=== PATIENT | female | born 1965 | race Caucasian/White ===

== ENCOUNTER → 2016-11-27 | Outpatient (CLI) | payer MEDICARE | LOC: RAD 10:49 | PROVIDERS: ATTEND Nurse Practitioner Psychiatric/Mental Health | DX: R19.00 Intra-abdominal and pelvic swelling, mass and lump, unspecified site (principal); K76.0 Fatty (change of) liver, not elsewhere classified; R16.0 Hepatomegaly, not elsewhere classified; N28.1 Cyst of kidney, acquired | CPT/HCPCS: 76700; 93976 ==

== ENCOUNTER → 2017-06-21 | Outpatient (CLI) | payer MEDICARE ==
--- NOTE | 2017-06-22 17:41 | WOMENS IMAGING REPORT ---
EXAM DESCRIPTION: 3D SCREENING MAMMO BILAT COMPLETED DATE/TIME: 06/21/2017 2:02 pm REASON FOR STUDY: ROUTINE SCREENING;Z12.31 Z12.31 ENCNTR SCREEN MAMMOGRAM FOR MALIGNANT NEOPLASM OF LYUBOV COMPARISON: Multiple since 2008 TECHNIQUE: Standard craniocaudal and mediolateral oblique views of each breast recorded using digita l acquisition and breast tomosynthesis. LIMITATIONS: None. FINDINGS: No masses, calcifications or architectural distortion. No areas of suspicion. Read with the assistance of CAD. .[facility] - R2 [employer] Version 1.3 .[facility] Imaging - R2 Cenova Version 1.3 .[facility] - R2 Cenova Version 2.4 .[facility] [place] R2 Cenova Version 2.4 .[facility] - R2 [employer] Version 9.2 IMPRESSION: NORMAL MAMMOGRAM. BIRADS 1. BREAST DENSITY: a. The breasts are almost entirely fatty. BIRAD: 1 NEGATIVE RECOMMENDATION: ROUTINE SCREENING Please continue yearly bilateral screening tomosynthesis in June 2018 COMMENT: The patient has been notified of the results by letter per SA requirements. Additional no tification policies are in place for contacting patient with suspicious or incomplete findings. Quality ID #[id number]: The [employer] recommends an annual screening mammogram for women aged 40 years or over. This facility utilizes a reminder system to ensure that all patients receive reminder letters, and/or direct phone calls for appointments. This includes reminders for routine scr eening mammograms, diagnostic mammograms, or other Breast Imaging Interventions when appropriate. Th is patient will be placed in the appropriate reminder system. The [employer] (ACR) has developed recommendations for screening MRI of the breast s in certain patient populations, to be used in conjunction with mammography. Breast MRI surveillanc e may be appropriate for women with more than 20% lifetime risk of developing breast cancer as deter mined by genetic testing, significant family history of the disease, or history of mantle radiation f or Hodgkins Disease. ACR Practice Guidelines 2008. DBT Technology DBT is a type of tomographic mammography. With conventional mammography, overlapping breast tissue ma y make lesions difficult to detect, even with good compression. DBT uses an x-ray tube that rotates a round the breast, taking images at different angles. These images are then combined to create thin sl ices of the breast that the radiologist can view as a 3D reconstruction. The [employer] unit can perform full-field digital mammograms (2D imaging); or DBT (3D imaging); or both, in a combination mode that quickly performs both the mammogram and the tomosynthesis scan while the breast is still compressed. PQRS 6045F: Fluoroscopic imaging is not utilized for breast tomosynthesis. TECHNICAL DOCUMENTATION: FINDING NUMBER: (1) ASSESSMENT: (1) JOB ID: [id number] [employer]- All Rights Reserved
== END ==
LOC: WI 13:49
PROVIDERS: ATTEND Internal Medicine Geriatric Medicine
DX: Z12.31 Encounter for screening mammogram for malignant neoplasm of breast (principal)
CPT/HCPCS: 77063; G0202; 77067

== ENCOUNTER 2018-04-09 22:01 | Emergency (ER) | payer MEDICARE ==
--- NOTE | 2018-04-09 23:07 | RADIOLOGY REPORT (SQ) ---
EXAM DESCRIPTION: 3 views of the left wrist CLINICAL HISTORY: 53 years, Female, fall injury COMPARISON: None. FINDINGS: There is no acute fracture or dislocation. The bony alignment is normal. There is no focal soft tissue swelling. The distal radius/ ulna, carpal, metacarpal, and phalangeal bones are normal in appearance.The visualized portions of the intercarpal, carpometacarpal, metacarpophalangeal, and interphalangeal joints are normal in appearance. IMPRESSION: No acute fracture or dislocation.
--- NOTE | 2018-04-09 23:12 | ER Document Report ---
ED General - General Chief Complaint: Fall Injury Stated Complaint: FALL/ARM INJURY Time Seen by Provider: 04/09/18 22:58 Notes: Patient is a 53-year-old female who presents with complaints of pain in the left wrist, right knee, and right ribs. She tripped over her dog leash when her dog took off fell onto her porch. She has been able walk without difficulty. Knee x-rays ordered in triage. Left wrist is swollen she does have pain over scaphoid. She also has pain in her right ribs that hurts to laugh or take a deep breath. She took oxycodone 10 mg at home before coming in. She denies hitting her head. No loss of consciousness. No other complaints at this time. TRAVEL OUTSIDE OF THE [place] IN LAST 30 DAYS: No - Related Data Allergies/Adverse Reactions: erythromycin base [Erythromycin Base] Allergy (Severe, Verified 10/23/13 11:04) Hives ketorolac tromethamine [From Toradol] Allergy (Severe, Verified 10/23/13 11:04) GI upset Penicillins Allergy (Severe, Verified 10/23/13 11:04) Hives valsartan [From Diovan] Allergy (Severe, Verified 10/23/13 11:04) Severe headache vancomycin [Vancomycin] Allergy (Severe, Verified 10/23/13 11:04) Hives Sulfa (Sulfonamide Antibiotics) Allergy (Verified 04/29/14 10:06) morphine [Morphine] Adverse Reaction (Verified 04/29/14 10:06) Past Medical History - Social History Smoking Status: Unknown if Ever Smoked Frequency of alcohol use: None Drug Abuse: None Family History: CAD - Past Medical History Cardiac Medical History: Reports: Hx Hypertension Denies: Hx Coronary Artery Disease, Hx Heart Attack Pulmonary Medical History: Reports: Hx Pneumonia - yrs ago Denies: Hx Asthma, Hx Bronchitis, Hx COPD Neurological Medical History: Denies: Hx Cerebrovascular Accident, Hx Seizures Endocrine Medical History: Reports: Hx Diabetes Mellitus Type 2 Musculoskeletal Medical History: Reports Hx Arthritis Past Surgical History: Reports: Hx Appendectomy, Hx Cholecystectomy, Hx Gynecologic Surgery - ovary tube, Hx Hysterectomy, Hx Orthopedic Surgery - back x5, elbow, - Immunizations Hx Diphtheria, Pertussis, Tetanus Vaccination: Yes Review of Systems - Review of Systems Notes: My Normal Review Basic REVIEW OF SYSTEMS: CONSTITUTIONAL : Denies fever, chills, or sweats. Denies recent illness. EENT: Denies eye, ear, throat, or mouth pain or symptoms. Denies nasal or sinus congestion. CARDIOVASCULAR: Denies chest pain. RESPIRATORY: Denies cough, cold, or chest congestion. Denies shortness of breath, difficulty breathing, or wheezing. GASTROINTESTINAL: Denies abdominal pain. Denies nausea, vomiting, or diarrhea. Denies constipation. Last BM: MUSCULOSKELETAL: Left wrist pain, right knee pain, right rib pain. SKIN: Denies rash or skin lesions. NEUROLOGICAL: Denies altered mental status or loss of consciousness. Denies headache. Denies weakness or paralysis or loss of use of either side. Denies problems with gait or speech. Denies sensory or motor loss. ALL OTHER SYSTEMS REVIEWED AND NEGATIVE. Physical Exam - Vital signs Vitals: Temp Pulse Resp BP Pulse Ox 97.3 F 83 16 140/91 H 99 04/09/18 22:35 04/09/18 22:35 04/09/18 22:35 04/09/18 22:35 04/09/18 22:35 - Notes Notes: General Appearance: Well nourished, alert, cooperative, no acute distress, mild obvious discomfort. Vitals: reviewed, See vital signs table. Head: no swelling or tenderness to the head Eyes: PERRL, EOMI, Conjuctiva clear Mouth: No decreasd moisture Neck: Supple, no neck tenderness, Chest wall: Pain palpation over the right ribs approximately over rib area 8 9 and 10. No crepitance palpation. Lungs: No wheezing, No rales, No rhonci, No accessory muscle use, good air exchange bilaterally. Heart: Normal rate, Regular rythm, No murmur, no rub Abdomen: Normal BS, soft, No rigidity, No abdominal tenderness, No guarding, no rebound, no abdominal masses, no organomegaly Extremities: strength 5/5 in all extremities, good pulses in all extremities, pain to palpation over left wrist. He is swelling over the scaphoid area. He has tenderness with any palpation of the wrist whether it is on the radial or ulnar aspect. No pain to palpation of the hand itself. Remainder forearm is nontender. Patient has skin abrasion over the right patella. The only area of tenderness is over the skin abrasion itself. The remainder of the knee is nontender and not swollen. Remainder of the extremity exams are normal without tenderness or swelling patient is full range of motion of all joints except for the pain with motion over the left wrist., no edema. Skin: warm, dry, appropriate color, no rash Neuro: speech clear, oriented x 3, normal affect, responds appropriately to questions. Course - Re-evaluation Re-evalutation: 04/10/18 00:08 Patient's x-rays do not show any fractures however she does have a lot of pain over the scaphoid area as well as swelling. Concern for possible occult scaphoid fracture. I therefore had the patient placed in a thumb spica splint. Patient to follow-up with her doctor in 5 days to week to have the wrist reevaluated. Patient encouraged to return to ER if she has difficulty breathing , fevers, worsening pain, or if she feels unwell. Patient given incentive spirometer due to her rib contusion. Patient has no pain to palpation of the abdomen and her rib pain is more over the chest thorax area. Dictation of this chart was performed using voice recognition software; therefore, there may be some unintended grammatical errors. - Vital Signs Vital signs: Temp Pulse Resp BP Pulse Ox 97.3 F 83 16 140/91 H 99 04/09/18 22:35 04/09/18 22:35 04/09/18 22:35 04/09/18 22:35 04/09/18 22:35 Procedures - Immobilization left wrist Pre-Proc Neuro Vasc Exam: Normal Immobilizer type: Thumb spica Performed by: PCT Post-Proc Neuro Vasc Exam: Normal Discharge - Discharge Clinical Impression: Wrist injury Qualifiers: Encounter type: initial encounter Laterality: left Qualified Code(s): S69.92XA - Unspecified injury of left wrist, hand and finger(s), initial encounter Knee abrasion Qualifiers: Encounter type: initial encounter Laterality: right Qualified Code(s): S80.211A - Abrasion, right knee, initial encounter Contusion of rib on right side Qualifiers: Encounter type: initial encounter Qualified Code(s): S20.211A - Contusion of right front wall of thorax, initial encounter Condition: Good Disposition: HOME, SELF-CARE Additional Instructions: Your x-rays do not show any fractures. Your left wrist does have significant swelling and has swelling over a bone called the scaphoid. Whenever there is tenderness of the scaphoid we are concerned that there may still be an underlying fracture not seen on x-ray. We therefore placed a splint. Please follow-up with your doctor in about 5 days. If you are still having pain over that bone then you will need a repeat x-ray to further evaluate the wrist. Please use an incentive spirometer to take a deep breath in once every 30 minutes. Please return to the ER immediately if you develop difficulty breathing, fevers, worsening pain, or feel unwell. Please clean your knee abrasion with soap and water and apply a clean nonstick bandage every day. Referrals: MERT PERSAUD MD [Primary Care Provider] - Follow up in 3-5 days
--- NOTE | 2018-04-09 23:15 | RADIOLOGY REPORT (SQ) ---
EXAM DESCRIPTION: XR KNEE 4 OR MORE VIEWS COMPLETED DATE/TME: 04/09/2018 22:10 CLINICAL HISTORY: 53 years Female, fall injury COMPARISON: None. Findings: Small knee effusion, likely developmental mild femoral condylar concavity, small osteophyte of the medial femoral condyle.. Bones, joints, and soft tissues of the XR R KNEE 4 VIEWS appear otherwise intact. IMPRESSION: Small right knee effusion.
--- NOTE | 2018-04-09 23:32 | RADIOLOGY REPORT (SQ) ---
EXAM DESCRIPTION: XR RIBS R UNILATERAL WITH CHEST COMPLETED DATE/TME: 04/09/2018 23:07 CLINICAL HISTORY: 53 years Female, trauma COMPARISON: None. NUMBER OF VIEWS/TECHNIQUE: 4 FINDINGS: No displaced rib fracture. No pneumothorax. No acute cardiopulmonary findings. Thoracolumbar hardware fusion. Right upper abdominal clips. IMPRESSION: No acute findings.
[2018-04-10 00:28] VITALS: BP 135/81
== END 2018-04-10 00:28 | disposition home or self-care (01) ==
LOC: ER 22:01
DX: S20.211A Contusion of right front wall of thorax, initial encounter (principal); S80.211A Abrasion, right knee, initial encounter; S69.92XA Unspecified injury of left wrist, hand and finger(s), initial encounter; W01.0XXA Fall on same level from slipping, tripping and stumbling without subsequent striking against object, initial encounter; Z88.1 Allergy status to other antibiotic agents; Z88.8 Allergy status to other drugs, medicaments and biological substances; Z88.0 Allergy status to penicillin; Z88.2 Allergy status to sulfonamides; I10 Essential (primary) hypertension; E11.9 Type 2 diabetes mellitus without complications
CPT/HCPCS: 99283

== ENCOUNTER → 2019-02-03 | Outpatient (CLI) | payer MEDICARE ==
--- NOTE | 2019-02-03 11:33 | WOMENS IMAGING REPORT ---
EXAM DESCRIPTION: 3D SCREENING MAMMO BILAT COMPLETED DATE/TIME: 02/03/2019 11:21 am REASON FOR STUDY: Z12.31 ROUTINE 3D BILATERAL SCREENING Z12.31 ENCNTR SCREEN MAMMOGRAM FOR MALIGNAN T NEOPLASM OF LYUBOV COMPARISON: [id number] EXAM PARAMETERS: Views: Standard craniocaudal and mediolateral oblique views of each breast recorded using digital acquisition and breast tomosynthesis. Read with the assistance of CAD. .[facility] - [employer] Version 9.2 LIMITATIONS: None. FINDINGS: No suspicious masses, suspicious calcifications or architectural distortion. No areas of c oncern. IMPRESSION: Assessment: Negative MAMMOGRAM. BIRADS 1. BREAST DENSITY: a. The breasts are almost entirely fatty. BIRAD: 1 NEGATIVE RECOMMENDATION: ROUTINE SCREENING COMMENT: The patient has been notified of the results by letter per SA requirements. Additional no tification policies are in place for contacting patient with suspicious or incomplete findings. Quality ID #[id number]: The [employer] recommends an annual screening mammogram for women aged 40 years or over. This facility utilizes a reminder system to ensure that all patients receive reminder letters, and/or direct phone calls for appointments. This includes reminders for routine scr eening mammograms, diagnostic mammograms, or other Breast Imaging Interventions when appropriate. Th is patient will be placed in the appropriate reminder system. TECHNICAL DOCUMENTATION: FINDING NUMBER: (1) ASSESSMENT: (1) JOB ID: [id number] [employer]- All Rights Reserved Reading location - IP/workstation name: [email or web address]
== END ==
LOC: WI 10:49
PROVIDERS: ATTEND Internal Medicine Geriatric Medicine
DX: Z12.31 Encounter for screening mammogram for malignant neoplasm of breast (principal)
CPT/HCPCS: 77063; 77067

== ENCOUNTER 2019-02-10 15:59 | Emergency (ER) | payer MEDICARE ==
--- NOTE | 2019-02-10 17:12 | ER Document Report ---
ED Medical Screen (RME) - General Chief Complaint: Rib Pain Stated Complaint: ABSCESS Time Seen by Provider: 02/10/19 17:08 Primary Care Provider: MERT PERSAUD MD [Primary Care Provider] - Follow up as needed Notes: Patient is a 54-year-old female presents to the emergency department with right lower rib and right upper quadrant abdominal pain and "a bump." States she is been dealing with this intermittently for the last 6 months. States last 24 hours this is a "bump" has gotten bigger and been causing more pain. Patient is denying any nausea, vomiting, diarrhea, fevers. GENERAL: Alert, interacts well. No acute distress. LUNGS: Clear to auscultation bilaterally, no wheezes, rales, or rhonchi. No respiratory distress. ABDOMEN: Soft, generalized tenderness noted right upper quadrant. Non- distended. Bowel sounds present in all 4 quadrants. Abdominal examination somewhat limited as patient is sitting in a chair in triage. I have greeted and performed a rapid initial assessment of this patient. A comprehensive ED assessment and evaluation of the patient, analysis of test results and completion of the medical decision making process will be conducted by additional ED providers. This medical record was dictated with voice recognizing software. There may be grammatical, syntax errors that are unintended. TRAVEL OUTSIDE OF THE [place] IN LAST 30 DAYS: No - Related Data Allergies/Adverse Reactions: erythromycin base [Erythromycin Base] Allergy (Severe, Verified 10/23/13 11:04) Hives ketorolac tromethamine [From Toradol] Allergy (Severe, Verified 10/23/13 11:04) GI upset Penicillins Allergy (Severe, Verified 10/23/13 11:04) Hives valsartan [From Diovan] Allergy (Severe, Verified 10/23/13 11:04) Severe headache vancomycin [Vancomycin] Allergy (Severe, Verified 10/23/13 11:04) Hives Sulfa (Sulfonamide Antibiotics) Allergy (Verified 04/29/14 10:06) morphine [Morphine] Adverse Reaction (Verified 04/29/14 10:06) Past Medical History - Social History Chew tobacco use (# tins/day): No Frequency of alcohol use: None Drug Abuse: None - Past Medical History Cardiac Medical History: Reports: Hx Hypertension Denies: Hx Coronary Artery Disease, Hx Heart Attack Pulmonary Medical History: Reports: Hx Pneumonia - yrs ago Denies: Hx Asthma, Hx Bronchitis, Hx COPD Neurological Medical History: Reports: Hx Migraine. Denies: Hx Cerebrovascular Accident, Hx Seizures Endocrine Medical History: Reports: Hx Diabetes Mellitus Type 2 Renal/ Medical History: Denies: Hx Peritoneal Dialysis Musculoskeltal Medical History: Reports Hx Arthritis Psychiatric Medical History: Reports: Hx Depression Past Surgical History: Reports: Hx Appendectomy, Hx Cholecystectomy, Hx Gynecologic Surgery - ovary tube, Hx Hysterectomy, Hx Orthopedic Surgery - back x5, elbow, - Immunizations Hx Diphtheria, Pertussis, Tetanus Vaccination: Yes Physical Exam - Vital signs Vitals: Temp Pulse Resp BP Pulse Ox 97.9 F 79 18 152/94 H 95 02/10/19 16:08 02/10/19 16:08 02/10/19 16:08 02/10/19 16:08 02/10/19 16:08 Course - Vital Signs Vital signs: Temp Pulse Resp BP Pulse Ox 97.9 F 79 18 152/94 H 95 02/10/19 16:08 02/10/19 16:08 02/10/19 16:08 02/10/19 16:08 02/10/19 16:08 Doctor's Discharge - Discharge Referrals: MERT PERSAUD MD [Primary Care Provider] - Follow up as needed
--- NOTE | 2019-02-10 17:42 | RADIOLOGY REPORT (SQ) ---
EXAM DESCRIPTION: ACUTE ABDOMEN SERIES COMPLETED DATE/TIME: 02/10/2019 5:23 pm REASON FOR STUDY: RUQ/R lower ribs pain COMPARISON: None. NUMBER OF VIEWS: Three views. TECHNIQUE: Frontal chest, supine abdomen and upright/decubitus abdomen radiographic images acquired. LIMITATIONS: None. FINDINGS: CHEST: Lungs clear of infiltrates. FREE AIR: None. No abnormal gas collections. BOWEL GAS PATTERN: Nonobstructive pattern. No dilated loops or air fluid levels. CALCIFICATIONS: No suspicious calcifications. HARDWARE: Thoracolumbar fusion. Cholecystectomy clips. SOFT TISSUES: No gross mass or suggestion of organomegaly. BONES: No acute fracture. No worrisome bone lesions. OTHER: No other significant finding. IMPRESSION: NO RADIOGRAPHIC EVIDENCE FOR ACUTE ABDOMINAL DISEASE. TECHNICAL DOCUMENTATION: JOB ID: [id number] [employer]- All Rights Reserved Reading location - IP/workstation name: [email or web address] [email or web address]
[2019-02-10 17:43] LABS: ABSOLUTE BASOPHILS # (AUTO) 0.1 10^3/uL (0.0-0.2); ABSOLUTE EOSINOPHILS # (AUTO) 0.1 10^3/uL (0.0-0.6); ABSOLUTE LYMPHOCYTES (AUTO) 1.8 10^3/uL (0.5-4.7); ABSOLUTE MONOCYTES (AUTO) 0.3 10^3/uL (0.1-1.4); ABSOLUTE NEUT (AUTO) 3.7 10^3/uL (1.7-8.2); BASOPHILS % (AUTO) 1.1 % (0-2); EOSINOPHILS % (AUTO) 2.3 % (0-6); HEMATOCRIT 38.1 % (36.0-47.0); HEMOGLOBIN 12.6 g/dL (12.0-15.5); LYMPHOCYTES % (AUTO) 30.6 % (13-45); MEAN CORPUSCULAR HEMOGLOBIN 26.7 pg (27.0-33.4); MEAN CORPUSCULAR HGB CONC 33.1 g/dL (32.0-36.0); MEAN CORPUSCULAR VOLUME 81 fl (80-97); MONOCYTES % (AUTO) 4.5 % (3-13); PLATELET COUNT 224 10^3/uL (150-450); RED BLOOD COUNT 4.72 10^6/uL (3.72-5.28); RED CELL DISTRIBUTION WIDTH 15.2 % (11.5-14.0); SEGMENTED NEUTROPHILS % (AUTO) 61.5 % (42-78); TOTAL CELLS COUNTED % (AUTO) 100 %
[2019-02-10 18:16] LABS: ALANINE AMINOTRANSFERASE 27 U/L (9-52); ALBUMIN 4.7 g/dL (3.5-5.0); ALKALINE PHOSPHATASE 94 U/L (38-126); ANION GAP 9 (5-19); ASPARTATE AMINO TRANSFERASE 28 U/L (14-36); BILIRUBIN,DIRECT 0.3 mg/dL (0.0-0.4); BILIRUBIN,TOTAL 0.5 mg/dL (0.2-1.3); BLOOD UREA NITROGEN 13 mg/dL (7-20); CALCIUM 9.6 mg/dL (8.4-10.2); CARBON DIOXIDE 33 mmol/L (22-30); CHLORIDE 98 mmol/L (98-107); GLUCOSE 197 mg/dL (75-110); POTASSIUM 4.1 mmol/L (3.6-5.0); SODIUM 140.3 mmol/L (137-145); TOTAL PROTEIN 7.5 g/dL (6.3-8.2)
[2019-02-10] MEDS ORDERED: NORMAL SALINE 1000 ML 1,000 ML IV ONE (18:19)
[2019-02-10] MEDS ORDERED: ONDANSETRON HCL INJ/PF 4 MG/2 ML SDV IV ONE (18:19)
[2019-02-10] MEDS ORDERED: FENTANYL CITRATE INJ/PF 100 MCG/2 ML AMPUL IV ONE ×2 (18:20→22:18)
--- NOTE | 2019-02-10 18:23 | RADIOLOGY REPORT (SQ) ---
EXAM DESCRIPTION: U/S ABDOMEN LIMITED W/O DOP COMPLETED DATE/TIME: 02/10/2019 6:06 pm REASON FOR STUDY: ruq pain/"bump" COMPARISON: 11/27/2016 TECHNIQUE: Dynamic and static grayscale images acquired of the abdomen and recorded on PACS. Gianlucao artie selected color Doppler and spectral images recorded. LIMITATIONS: None. FINDINGS: PANCREAS: Not seen. LIVER: Increased echogenicity. No masses. LIVER VASCULATURE: Normal directional flow of the main portal vein and hepatic veins. GALLBLADDER: Surgically absent. ULTRASOUND-DETECTED GARCIA'S SIGN: Not applicable. INTRAHEPATIC DUCTS AND COMMON DUCT: CBD and intrahepatic ducts normal caliber. No filling defects. INFERIOR VENA CAVA: Normal flow. AORTA: No aneurysm. RIGHT KIDNEY: Normal size, 11 cm. Normal echogenicity. No solid or suspicious masses. No hydronephro sis. No calcifications. PERITONEAL AND RIGHT PLEURAL SPACE: No ascites or effusions. OTHER: No other significant findings. IMPRESSION: NORMAL RIGHT UPPER QUADRANT ULTRASOUND. TECHNICAL DOCUMENTATION: JOB ID: [id number] [employer]- All Rights Reserved Reading location - IP/workstation name: [email or web address]
--- NOTE | 2019-02-10 21:09 | ER Document Report ---
ED General - General Chief Complaint: Rib Pain Stated Complaint: ABSCESS Time Seen by Provider: 02/10/19 17:08 Primary Care Provider: MERT PERSAUD MD [Primary Care Provider] - Follow up in 3-5 days AMANDA PATEL MD [ACTIVE STAFF] - Follow up as needed Notes: Patient is a 54 year old female that presents to the emergency department for chief complaint of ruq abdominal pain. Patient states that this pain started yesterday and seems to have progressed since that time. She describes having a "knot" under her right breast. Reports feeling this in the past, but it has not really been painful before. She currently rates the pain as a 6/10 as a sharp and stabbing like sensation. Nothing seems to make it better or worse. Denies fevers, chills, headache, nausea, vomiting, chest pain, or shortness of breath. She reports having bowel movements, stating she has chronic diarrhea, that is being evaluated as an outpatient. Denies any urinary complaints such as dysuria or hematuria. She does have history of cholecystectomy. Past Medical History: chronic low back pain, chronic diarrhea, HTN, DM Past Surgical History: hysterectomy, cholecystectomy, spinal fusion Social History: Denies tobacco, ETOH, or illicit drug use. Family History: Reviewed and noncontributory for presenting illness Allergies: Reviewed, see documented allergy list. REVIEW OF SYSTEMS: Other than noted above, the 12 point review of systems was reviewed with the patient and were negative, all pertinent findings are included in the HPI. PHYSICAL EXAMINATION: Vital signs reviewed, nursing noted reviewed. GENERAL: Appears uncomfortable but no acute distress. HEAD: Atraumatic, normocephalic. EYES: Eyes appear normal, extraocular movements intact, sclera anicteric, conjunctiva are normal. ENT: nares patent, oropharynx clear without exudates. Moist mucous membranes. NECK: Normal range of motion, supple without lymphadenopathy LUNGS: Breath sounds clear to auscultation bilaterally and equal. No wheezes rales or rhonchi. HEART: Regular rate and rhythm without murmurs ABDOMEN: Soft, RUQ tenderness with palpation, negative diego's sign, pain is located under the right breast, there is slight prominence noted in this area, without erythema or fluctuance, normoactive bowel sounds. No rebound, guarding, or rigidity. No masses appreciated. EXTREMITIES: Nontender, good range of motion, no pitting or edema. NEUROLOGICAL: No focal neurological deficits. Moves all extremities spontaneously Motor and sensory grossly intact on exam. PSYCH: Normal mood, normal affect. SKIN: Warm, Dry, normal turgor, no rashes or lesions noted on exposed skin TRAVEL OUTSIDE OF THE [place] IN LAST 30 DAYS: No - Related Data Allergies/Adverse Reactions: erythromycin base [Erythromycin Base] Allergy (Severe, Verified 10/23/13 11:04) Hives ketorolac tromethamine [From Toradol] Allergy (Severe, Verified 10/23/13 11:04) GI upset Penicillins Allergy (Severe, Verified 10/23/13 11:04) Hives valsartan [From Diovan] Allergy (Severe, Verified 10/23/13 11:04) Severe headache vancomycin [Vancomycin] Allergy (Severe, Verified 10/23/13 11:04) Hives Sulfa (Sulfonamide Antibiotics) Allergy (Verified 04/29/14 10:06) morphine [Morphine] Adverse Reaction (Verified 04/29/14 10:06) Past Medical History - Social History Smoking Status: Former Smoker Chew tobacco use (# tins/day): No Frequency of alcohol use: None Drug Abuse: None Family History: CAD Patient has suicidal ideation: No Patient has homicidal ideation: No - Past Medical History Cardiac Medical History: Reports: Hx Hypertension Denies: Hx Coronary Artery Disease, Hx Heart Attack Pulmonary Medical History: Reports: Hx Pneumonia - yrs ago Denies: Hx Asthma, Hx Bronchitis, Hx COPD Neurological Medical History: Reports: Hx Migraine. Denies: Hx Cerebrovascular Accident, Hx Seizures Endocrine Medical History: Reports: Hx Diabetes Mellitus Type 2 Renal/ Medical History: Denies: Hx Peritoneal Dialysis Musculoskeletal Medical History: Reports Hx Arthritis Psychiatric Medical History: Reports: Hx Depression Past Surgical History: Reports: Hx Appendectomy, Hx Cholecystectomy, Hx Gynecologic Surgery - ovary tube, Hx Hysterectomy, Hx Orthopedic Surgery - back x5, elbow, - Immunizations Hx Diphtheria, Pertussis, Tetanus Vaccination: Yes Physical Exam - Vital signs Vitals: Temp Pulse Resp BP Pulse Ox 97.9 F 79 18 152/94 H 95 02/10/19 16:08 02/10/19 16:08 02/10/19 16:08 02/10/19 16:08 02/10/19 16:08 Course - Re-evaluation Re-evalutation: Patient seen and examined, vital signs reviewed. Appears mildly uncomfortable on exam, non-surgical abdomen. Laboratory data and imaging order and reviewed. Including abdominal xrays, RUQ US, and CT imaging of the abdomen and pelvis. All imaging was unremarkable for acute process, noted was mild hepatosplenomegaly, otherwise normal imaging. I did review CT imaging that looked like a possible abdominal wall defect in the area the patient was complaining of pain, however there was no evidence of a hernia at this location. Patient was treated with IV fentanyl, zofran and fluids. On repeat exam patient was improved, discussed results, and advised follow-up with her PCP. Patient is stable for discharge at this time and agreeable with plan of care. Laboratory 02/10/19 02/10/19 17:11 17:11 WBC 6.0 RBC 4.72 Hgb 12.6 Hct 38.1 MCV 81 MCH 26.7 L MCHC 33.1 RDW 15.2 H Plt Count 224 Seg Neutrophils % 61.5 Lymphocytes % 30.6 Monocytes % 4.5 Eosinophils % 2.3 Basophils % 1.1 Absolute Neutrophils 3.7 Absolute Lymphocytes 1.8 Absolute Monocytes 0.3 Absolute Eosinophils 0.1 Absolute Basophils 0.1 Sodium 140.3 Potassium 4.1 Chloride 98 Carbon Dioxide 33 H Anion Gap 9 BUN 13 Creatinine 0.85 Est GFR ( Amer) > 60 Est GFR (Non-Af Amer) > 60 Glucose 197 H Calcium 9.6 Total Bilirubin 0.5 Direct Bilirubin 0.3 Neonat Total Bilirubin Not Reportable Neonat Direct Bilirubin Not Reportable Neonat Indirect Bili Not Reportable AST 28 ALT 27 Alkaline Phosphatase 94 Total Protein 7.5 Albumin 4.7 Abdomen/Pelvis CT 02/10/19 00:00 IMPRESSION: No acute abnormality within the abdomen or pelvis. Hepatosplenomegaly. TECHNICAL DOCUMENTATION: Quality ID # 436: Final reports with documentation of one or more dose reduction techniques (e.g., Automated exposure control, adjustment of the mA and/or kV according to patient size, use of iterative reconstruction technique) copyright 2011 [employer]- All Rights Reserved Abdomen Ultrasound 02/10/19 17:08 IMPRESSION: NORMAL RIGHT UPPER QUADRANT ULTRASOUND. Acute Abdomen Series 02/10/19 17:09 IMPRESSION: NO RADIOGRAPHIC EVIDENCE FOR ACUTE ABDOMINAL DISEASE. - Vital Signs Vital signs: Temp Pulse Resp BP Pulse Ox 97.3 F 63 20 157/93 H 97 02/10/19 23:17 02/10/19 23:17 02/10/19 23:17 02/10/19 23:17 02/10/19 23:17 - Laboratory Result Diagrams: 02/10/19 17:11 02/10/19 17:11 Laboratory results interpreted by me: 02/10/19 02/10/19 17:11 17:11 MCH 26.7 L RDW 15.2 H Carbon Dioxide 33 H Glucose 197 H Discharge - Discharge Clinical Impression: Abdominal pain Qualifiers: Abdominal location: right upper quadrant Qualified Code(s): R10.11 - Right upper quadrant pain Condition: Stable Disposition: HOME, SELF-CARE Instructions: Abdominal Pain ([facility]) Additional Instructions: Please follow-up with your primary care physician, you may take anti- inflammatory medications or Tylenol for your pain if you are able to take them. Your CAT scan did not demonstrate any acute process, and no concern for needing any surgery, there may be a small hernia defect, causing some pain in the region where it is hurting you. However there is no presence of intestine or small bowel in this area. Referrals: MERT PERSAUD MD [Primary Care Provider] - Follow up in 3-5 days AMANDA PATEL MD [ACTIVE STAFF] - Follow up as needed
--- NOTE | 2019-02-10 22:14 | RADIOLOGY REPORT (SQ) ---
EXAM DESCRIPTION: CT ABDOMEN PELVIS WITH IV CONTRAST COMPLETED DATE/TME: 02/10/2019 00:00 CLINICAL HISTORY: 54 years, Female, RUQ abdominal pain, poss incarcerated hernia COMPARISON: Prior study from 12/22/2015 TECHNIQUE: Contrast enhanced CT of the abdomen/pelvis was performed. Coronal and sagittal reformations were created. Images stored on PACS. All CT scanners at this facility use dose modulation, iterative reconstruction, and/or weight based dosing when appropriate to reduce radiation dose to as low as reasonably achievable (ALARA). [facility]: Dose Right [facility]: CareDose [facility]: Dose Right [facility]: Teradose 4D [facility]: Knotice LIMITATIONS: None. FINDINGS: Limited evaluation of the lower chest reveals clear lung bases. Liver enhances normally. It appears enlarged, measuring up to 21.2 cm in length. A low-density lesion is noted about the anterior aspect of the spleen, either indicating a benign cyst or hemangioma. The spleen itself is enlarged, measuring 15.3 cm in length. Pancreas and both adrenal glands enhance normally. The gallbladder is absent. As result, there is mild prominence of the intrahepatic and common bile ducts. A simple cyst emanates from the interpolar region of the left kidney. Both kidneys otherwise enhance symmetrically. No hydronephrosis or hydroureter. Urinary bladder is collapsed, thus its evaluation is limited. The small and large bowel appear normal in caliber without areas of focal wall thickening. Evidence of bowel obstruction. The appendix is not visualized; however, no pericecal inflammatory changes are appreciated. Vascular structures opacify with contrast normally. No suspicious lymphadenopathy or drainable fluid collections are appreciated. Bone windows show no destructive osseous lesions. IMPRESSION: No acute abnormality within the abdomen or pelvis. Hepatosplenomegaly. TECHNICAL DOCUMENTATION: Quality ID # 436: Final reports with documentation of one or more dose reduction techniques (e.g., Automated exposure control, adjustment of the mA and/or kV according to patient size, use of iterative reconstruction technique) copyright 2011 [employer]- All Rights Reserved
[2019-02-10 23:21] VITALS: BP 157/93
== END 2019-02-10 23:17 | disposition home or self-care (01) ==
LOC: ER 15:59
DX: R10.11 Right upper quadrant pain (principal); R16.2 Hepatomegaly with splenomegaly, not elsewhere classified; R10.811 Right upper quadrant abdominal tenderness; R19.7 Diarrhea, unspecified; I10 Essential (primary) hypertension; E11.9 Type 2 diabetes mellitus without complications; Z90.49 Acquired absence of other specified parts of digestive tract; Z90.710 Acquired absence of both cervix and uterus; Z88.1 Allergy status to other antibiotic agents; Z88.8 Allergy status to other drugs, medicaments and biological substances; Z88.0 Allergy status to penicillin; Z88.2 Allergy status to sulfonamides; Z87.891 Personal history of nicotine dependence
CPT/HCPCS: 96376; 99284; 96361; 96374; 96375; 36415; 85025; 80053; 74022; 76705; 74177; J3010; J2405; J7030

== ENCOUNTER 2019-07-19 | Emergency (ER) | payer MEDICARE ==
[2019-07-19] MEDS ORDERED: MORPHINE SULFATE 10 MG/ML INJ IV ONE (00:34)
[2019-07-19] MEDS ORDERED: ONDANSETRON HCL INJ/PF 4 MG/2 ML SDV IV ONE (00:34)
--- NOTE | 2019-07-19 00:36 | ER Document Report ---
ED General - General Chief Complaint: Shortness Of Breath Stated Complaint: TROUBLE BREATHING Time Seen by Provider: 07/19/19 00:28 Primary Care Provider: MERT PERSAUD MD [Primary Care Provider] - Follow up as needed Notes: Patient is a 54-year-old female that comes emergency department for chief complaint of sharp pain in her upper abdomen that wraps around her back. She states it feels like she is being squeezed on both sides. She states that the pain is sharp and making it difficult to take deep breaths. She denies shortness of breath, vomiting, fever, abdominal injury. She states she ate chicken nuggets for dinner and she started having the pain shortly after she took her new medication Viberzi tonight. She has had a cholecystectomy and ventral hernia repair. Past medical history includes type 2 diabetes, hypertension, chronic pain management on oxycodone, GERD, depression/anxiety. TRAVEL OUTSIDE OF THE [place] IN LAST 30 DAYS: Yes - Related Data Allergies/Adverse Reactions: erythromycin base [Erythromycin Base] Allergy (Severe, Verified 07/19/19 00:13) Hives ketorolac tromethamine [From Toradol] Allergy (Severe, Verified 07/19/19 00:13) GI upset Penicillins Allergy (Severe, Verified 07/19/19 00:13) Hives valsartan [From Diovan] Allergy (Severe, Verified 07/19/19 00:13) Severe headache vancomycin [Vancomycin] Allergy (Severe, Verified 07/19/19 00:13) Hives Sulfa (Sulfonamide Antibiotics) Allergy (Verified 07/19/19 00:13) Past Medical History - General Information source: Patient - Social History Smoking Status: Former Smoker Chew tobacco use (# tins/day): No Frequency of alcohol use: None Drug Abuse: None Lives with: Family Family History: CAD Patient has suicidal ideation: No Patient has homicidal ideation: No - Past Medical History Cardiac Medical History: Reports: Hx Hypertension Denies: Hx Coronary Artery Disease, Hx Heart Attack Pulmonary Medical History: Denies: Hx Asthma, Hx Bronchitis, Hx COPD, Hx Pneumonia Neurological Medical History: Reports: Hx Migraine. Denies: Hx Cerebrovascular Accident, Hx Seizures Endocrine Medical History: Reports: Hx Diabetes Mellitus Type 2 Renal/ Medical History: Denies: Hx Peritoneal Dialysis Musculoskeletal Medical History: Reports Hx Arthritis - BACK Psychiatric Medical History: Reports: Hx Depression Past Surgical History: Reports: Hx Appendectomy, Hx Cholecystectomy, Hx Gynecologic Surgery - ovary tube, Hx Hysterectomy, Hx Orthopedic Surgery - back x5, elbow, - Immunizations Hx Diphtheria, Pertussis, Tetanus Vaccination: Yes Review of Systems - Review of Systems Constitutional: No symptoms reported EENT: No symptoms reported Cardiovascular: No symptoms reported Respiratory: No symptoms reported Gastrointestinal: See HPI Genitourinary: No symptoms reported Female Genitourinary: No symptoms reported Musculoskeletal: No symptoms reported Skin: No symptoms reported Hematologic/Lymphatic: No symptoms reported Neurological/Psychological: No symptoms reported Physical Exam - Vital signs Vitals: Temp Pulse Resp BP Pulse Ox 98.5 F 62 20 144/66 H 95 07/19/19 00:12 07/19/19 00:12 07/19/19 00:12 07/19/19 00:12 07/19/19 00:12 - Notes Notes: GENERAL: Alert, talkative, nontoxic, no apparent distress HEAD: Normocephalic, atraumatic. EYES: Pupils equal, round, and reactive to light. Extraocular movements intact. ENT: Oral mucosa moist, tongue midline. Oropharynx unremarkable. Airway patent. NECK: Full range of motion. Supple. Trachea midline. LUNGS: Clear to auscultation bilaterally, no wheezes, rales, or rhonchi. No respiratory distress. HEART: Regular rate and rhythm. No murmur ABDOMEN: There is generalized tenderness in the upper abdomen and also mildly of the mid to lower abdomen, no guarding or rigidity, no obvious distention. Bowel sounds present. There is a horizontal midline supraumbilical scar. No noted hernias. GENITOURINARY: Deferred EXTREMITIES: Moves all 4 extremities spontaneously. No edema, normal radial and dorsalis pedis pulses bilaterally. No cyanosis. BACK: no cervical, thoracic, lumbar midline tenderness. No saddle anesthesia, normal distal neurovascular exam. Moves all extremities in full range of motion. NEUROLOGICAL: Alert and oriented x3. Normal speech. Cranial nerves II through XII grossly intact. PSYCH: Normal affect, normal mood. SKIN: Warm, dry, normal turgor. No rashes or lesions noted. Course - Re-evaluation Re-evalutation: Patient remains smiling, talkative, well-appearing on reevaluation. No complaints on reevaluation. CBC nonspecific, chemistry nonspecific, lipase unremarkable, urinalysis unremarkable. X-ray without acute findings. EKG without acute findings. Troponin negative. No chest pain. Symptoms started just after patient took her new medication for IBS, one of the medication side effects is abdominal cramping and nausea. I feel this is most likely the cause of her symptoms because this was specific with her symptoms and symptoms usually resolved. Her evaluation overall is very benign. Very low suspicion of acute abdomen or ACS. I discussed with and patient in detail, they state they have already decided she will stop taking the medication because she responded so severely, they are requesting discharge, they state they will return if she worsens in any way. Stable at time of discharge. - Vital Signs Vital signs: Temp Pulse Resp BP Pulse Ox 97.6 F 58 L 16 126/74 H 94 07/19/19 03:24 07/19/19 03:24 07/19/19 03:24 07/19/19 03:24 07/19/19 01:02 - Laboratory Result Diagrams: 07/19/19 01:05 07/19/19 01:05 Laboratory results interpreted by me: 07/19/19 07/19/19 01:05 01:05 MCV 79 L MCH 26.5 L RDW 14.3 H Potassium 3.3 L Carbon Dioxide 31 H Glucose 183 H AST 63 H - EKG Interpretation by Me Additional EKG results interpreted by me: EKG shows sinus bradycardia at a rate of 55, normal axis, QTC of 452, no T wave inversions or ST segment changes in consecutive leads. Discharge - Discharge Clinical Impression: Abdominal pain Qualifiers: Abdominal location: generalized Qualified Code(s): R10.84 - Generalized abdominal pain Condition: Stable Disposition: HOME, SELF-CARE Additional Instructions: Your evaluation and work-up are reassuring. I suspect you are having side effec ts of your new medication Viberzi. I recommend you hold this medication and discuss this with your primary provider before you take this again. Return if you worsen including vomiting, return for worsening pain, fever, or any other concerning or worsening symptoms. Referrals: MERT PERSAUD MD [Primary Care Provider] - Follow up as needed
[2019-07-19 01:14] LABS: ABSOLUTE BASOPHILS # (AUTO) 0.1 10^3/uL (0.0-0.2); ABSOLUTE EOSINOPHILS # (AUTO) 0.1 10^3/uL (0.0-0.6); ABSOLUTE LYMPHOCYTES (AUTO) 2.3 10^3/uL (0.5-4.7); ABSOLUTE MONOCYTES (AUTO) 0.4 10^3/uL (0.1-1.4); ABSOLUTE NEUT (AUTO) 4.1 10^3/uL (1.7-8.2); BASOPHILS % (AUTO) 0.8 % (0-2); EOSINOPHILS % (AUTO) 1.6 % (0-6); HEMATOCRIT 36.1 % (36.0-47.0); HEMOGLOBIN 12.1 g/dL (12.0-15.5); LYMPHOCYTES % (AUTO) 32.7 % (13-45); MEAN CORPUSCULAR HEMOGLOBIN 26.5 pg (27.0-33.4); MEAN CORPUSCULAR HGB CONC 33.4 g/dL (32.0-36.0); MEAN CORPUSCULAR VOLUME 79 fl (80-97); MONOCYTES % (AUTO) 5.5 % (3-13); PLATELET COUNT 201 10^3/uL (150-450); RED BLOOD COUNT 4.56 10^6/uL (3.72-5.28); RED CELL DISTRIBUTION WIDTH 14.3 % (11.5-14.0); SEGMENTED NEUTROPHILS % (AUTO) 59.4 % (42-78); TOTAL CELLS COUNTED % (AUTO) 100 %; WHITE BLOOD COUNT 6.9 10^3/uL (4.0-10.5)
[2019-07-19 01:26] LABS: ALBUMIN 4.1 g/dL (3.5-5.0); ALKALINE PHOSPHATASE 106 U/L (38-126); ANION GAP 9 (5-19); ASPARTATE AMINO TRANSFERASE 63 U/L (14-36); BILIRUBIN,DIRECT 0.2 mg/dL (0.0-0.4); BILIRUBIN,TOTAL 0.5 mg/dL (0.2-1.3); BLOOD UREA NITROGEN 10 mg/dL (7-20); CALCIUM 9.3 mg/dL (8.4-10.2); CARBON DIOXIDE 31 mmol/L (22-30); CHLORIDE 100 mmol/L (98-107); GLUCOSE 183 mg/dL (75-110); POTASSIUM 3.3 mmol/L (3.6-5.0); TOTAL PROTEIN 6.7 g/dL (6.3-8.2)
--- NOTE | 2019-07-19 02:35 | RADIOLOGY REPORT (SQ) ---
Acute abdominal series on 07/19/2019 at 2:00 AM CLINICAL INDICATION: Acute onset severe abdominal pain COMPARISON: 02/10/2019 FINDINGS: CHEST: Multiple wires are noted projecting over the chest. The lungs are clear. Cardiac, hilar and mediastinal contours are within normal limits. Pulmonary vascularity is within normal limits. ABDOMEN: Posterior fusion hardware is noted in the lower thoracic spine extending to the sacrum. There is no free air. There are stable calcifications to the right of the lower lumbar spine which in correlation with the prior CT from 02/10/2019 just represent phleboliths. Other calcifications in the pelvis are consistent with phleboliths. Bowel gas pattern is unremarkable. No increased stool to suggest constipation is noted. IMPRESSION: 1. No acute cardiopulmonary disease. 2. Nonspecific abdomen.
[2019-07-19 03:27] VITALS: BP 126/74
--- NOTE | 2019-07-19 11:09 | EKG REPORT ---
SEVERITY:- BORDERLINE ECG - SINUS RHYTHM LVH BY VOLTAGE : Confirmed by: Moriah Hood MD 19-Jul-2019 11:08:40
== END 2019-07-19 03:24 | disposition home or self-care (01) ==
LOC: ER
DX: R10.84 Generalized abdominal pain (principal); R06.02 Shortness of breath; R10.10 Upper abdominal pain, unspecified; Z90.49 Acquired absence of other specified parts of digestive tract; E11.9 Type 2 diabetes mellitus without complications; I10 Essential (primary) hypertension; Z79.899 Other long term (current) drug therapy; Z87.891 Personal history of nicotine dependence
CPT/HCPCS: 93005; 36415; 83690; 85025; 80053; 84484; 74022; 93010; J2270; J2405; 96374; 96375; 99284

== ENCOUNTER 2019-08-03 19:20 | Emergency (ER) | payer MEDICARE ==
--- NOTE | 2019-08-03 19:51 | ER Document Report ---
ED Extremity Problem, Lower - General Chief Complaint: Ankle Injury Stated Complaint: ANKLE INJURY Time Seen by Provider: 08/03/19 19:45 Primary Care Provider: [facility] [Provider Group] - Follow up as needed MERT PERSAUD MD [Primary Care Provider] - Follow up tomorrow Mode of Arrival: Wheelchair Information source: Patient Notes: 54-year-old female presents to ED for complaint of pain to the left lateral ankle.. She states she was in [place] about 4 PM when she got a little dizzy going down the stairs rolled her ankle when she missed the last step and fell. She did cause an abrasion to the lateral aspect of her ankle. She states she did not hit her head. She is on chronic back pain management and takes oxycodone 10 mg p.o. 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 On oxycodone 10 mg 4 times daily as needed she is also on gabapentin trazodone baclofen benazepril atrovastatin metformin CoQ10. Sertraline Zoloft and Wellbutrin. TRAVEL OUTSIDE OF THE [place] IN LAST 30 DAYS: Yes - HPI Patient complains to provider of: Injury, Pain, Swelling, Other - Abrasion Location: Ankle Occurred: Other - About 4 PM Where: Outdoors Onset/Duration: Sudden, Persistent Quality of pain: Throbbing Severity: Moderate Pain Level: 3 Context: Fell, Twisted Recent injury: Yes Associated symptoms: Painful ambulation Exacerbated by: Hanging down, Movement, Walking Relieved by: Elevation, Ice, Rest - Related Data Allergies/Adverse Reactions: erythromycin base [Erythromycin Base] Allergy (Severe, Verified 07/19/19 00:13) Hives ketorolac tromethamine [From Toradol] Allergy (Severe, Verified 07/19/19 00:13) GI upset Penicillins Allergy (Severe, Verified 07/19/19 00:13) Hives valsartan [From Diovan] Allergy (Severe, Verified 07/19/19 00:13) Severe headache vancomycin [Vancomycin] Allergy (Severe, Verified 07/19/19 00:13) Hives Sulfa (Sulfonamide Antibiotics) Allergy (Verified 07/19/19 00:13) Past Medical History - General Information source: Patient - Social History Smoking Status: Former Smoker Frequency of alcohol use: None Drug Abuse: None Lives with: Family Family History: CAD Patient has suicidal ideation: No Patient has homicidal ideation: No - Past Medical History Cardiac Medical History: Reports: Hx Hypercholesterolemia, Hx Hypertension Pulmonary Medical History: Reports: None Neurological Medical History: Reports: Hx Migraine. Denies: Hx Cerebrovascular Accident, Hx Seizures Endocrine Medical History: Reports: Hx Diabetes Mellitus Type 2 Renal/ Medical History: Denies: Hx Peritoneal Dialysis Musculoskeletal Medical History: Reports Hx Arthritis - BACK, Reports Hx Musculoskeletal Deformity, Reports Hx Musculoskeletal Trauma Psychiatric Medical History: Reports: Hx Depression Traumatic Medical History: Reports: Hx Fractures - Wrist leg and finger Infectious Medical History: Reports: None Past Surgical History: Reports: Hx Appendectomy, Hx Cholecystectomy, Hx Gynecologic Surgery - ovary tube, Hx Hysterectomy, Hx Orthopedic Surgery - back x5, elbow,, Other - Upper abdominal hernia repaired - Immunizations Hx Diphtheria, Pertussis, Tetanus Vaccination: Yes Review of Systems - Review of Systems Constitutional: No symptoms reported EENT: No symptoms reported Cardiovascular: No symptoms reported Respiratory: No symptoms reported Gastrointestinal: No symptoms reported Genitourinary: No symptoms reported Female Genitourinary: No symptoms reported Musculoskeletal: Ankle swelling Skin: No symptoms reported Hematologic/Lymphatic: No symptoms reported Neurological/Psychological: No symptoms reported -: Yes All other systems reviewed and negative Physical Exam - Vital signs Vitals: Temp Pulse Resp BP Pulse Ox 98.2 F 80 20 134/79 H 98 08/03/19 19:45 08/03/19 19:45 08/03/19 19:45 08/03/19 19:45 08/03/19 19:45 Interpretation: Normal - General General appearance: Appears well, Alert - HEENT Head: Normocephalic, Atraumatic Eyes: Normal Pupils: PERRL - Respiratory Respiratory status: No respiratory distress Chest status: Nontender Breath sounds: Normal Chest palpation: Normal - Cardiovascular Rhythm: Regular Heart sounds: Normal auscultation Murmur: No - Abdominal Inspection: Normal Distension: No distension Bowel sounds: Normal Tenderness: Nontender Organomegaly: No organomegaly - Back Back: Normal, Nontender - Extremities General upper extremity: Normal inspection, Nontender, Normal color, Normal ROM, Normal temperature General lower extremity: Normal inspection, Nontender, Normal color, Normal ROM, Normal temperature, Normal weight bearing. No: Omer's sign - Neurological Neuro grossly intact: Yes Cognition: Normal Orientation: AAOx4 Matt Coma Scale Eye Opening: Spontaneous Matt Coma Scale Verbal: Oriented Stanford Coma Scale Motor: Obeys Commands Stanford Coma Scale Total: 15 Speech: Normal Motor strength normal: LUE, RUE, LLE, RLE Sensory: Normal - Psychological Associated symptoms: Normal affect, Normal mood - Skin Skin Temperature: Warm Skin Moisture: Dry Skin Color: Normal Course - Vital Signs Vital signs: Temp Pulse Resp BP Pulse Ox 98.1 F 73 16 152/60 H 96 08/03/19 21:12 08/03/19 21:12 08/03/19 21:12 08/03/19 21:12 08/03/19 21:12 - Diagnostic Test Radiology reviewed: Image reviewed, Reports reviewed Procedures - Immobilization Left Ankle Time completed: 20:55 Pre-Proc Neuro Vasc Exam: Normal Immobilizer type: Darryl wrap, Ankle stirrup, Crutches Performed by: PCT Post-Proc Neuro Vasc Exam: Normal Alignment checked and good: Yes Discharge - Discharge Clinical Impression: Abrasion, left ankle, initial encounter Left ankle sprain Qualifiers: Encounter type: initial encounter Involved ligament of ankle: unspecified ligament Qualified Code(s): S93.402A - Sprain of unspecified ligament of left ankle, initial encounter Condition: Stable Disposition: HOME, SELF-CARE Additional Instructions: SPRAINED ANKLE: Your sprained ankle results from stretching or tearing of the ligaments which support the ankle. This usually results from twisting the foot inward and under. The ligaments will require time and protection in order to heal properly. Many ankle sprains are quite disabling, and should be taken seriously. The usual treatment for an ankle sprain is cold packs; protection with tape, splints, or wraps; elevation; and staying off the ankle for at least a day. As the ankle improves, you can walk IF it's not painful to bear weight. Sports are best postponed until healing is complete. More serious sprains usually require strengthening exercises after early healing. Your physician has assessed the seriousness of the ligament injury to your ankle. However, the treatment may change, depending on how your ankle progresses. If further exams were recommended, it is important that you follow through. Call the doctor if your foot becomes numb, painful, or severely swollen. ABRASIONS: An abrasion is a scraping injury of the skin. Some scarring may result. The seriousness of an abrasion is not always obvious at first. Hidden tissue damage may be present and infection may occur despite proper care. Complete healing may take from ten days to as long as a month. The healing time depends on the depth of the abrasion, and on the amount of crushing of underlying tissues from the injury. Keep the wound and dressing clean. Do not shower or bathe the area until okayed by the doctor. If the dressing gets wet, remove it and blot the wound dry, then reapply a clean dressing. Dressings should be changed every day. Sunscreen should be used for six months after the skin is healed. If any signs of infection occur (swelling, redness, increasing tenderness, red streaks, profuse purulent drainage from the abrasion, tender lumps in the ar mpit or groin above the abrasion, or fever), see the doctor immediately. ANKLE STIRRUP SPLINT: You are to use an ankle brace called a stirrup splint. This type of brace allows you to place greater stresses on the ankle without risk of re-injury, and is often used for more severe ankle injuries such as avulsion fractures and ligament ruptures. The splint can be worn over a sock or tape. For proper support, wear the splint with a shoe over it. It's important that the splint fit properly. Adjust the heel tension, if needed. If your splint has air bladders, peel back the bottom of each air bladder, then move the Velcro attachment of the heel strap up or down. Air bladder pressure can be adjusted by pulling up the valve at the top, threading the air tube down into the main bladder, then blowing air into the bladder or squeezing it out. The two sides of the stirrup can be moved forward or back on your ankle by changing the attachment of the main straps. If you are unable to use the ankle comfortably in the splint, return for re-evaluation. DARRYL WRAP: A compression dressing (darryl wrap) has been placed. This helps hold the area still. It limits swelling and internal bleeding. The wrap should be comfortably snug -- not tight. You should feel a sense of pressure, but not severe pain under the wrap. Unless the physician tells you otherwise, you can adjust the wrap for comfort. If the wrap causes symptoms suggesting it's too tight -- uncomfortable pressure, swelling or discoloration beyond the wrap, numbness, or severe pain -- you must loosen the wrap. If these symptoms don't resolve promptly, return for re-evaluation. USE OF CRUTCHES: The doctor has recommended that you not bear weight at this time. You will need to use crutches. Adjust the crutches so the tops come to about two inches under the armpit while you are standing upright. Use your hands -- not your armpits -- to support your weight. To get into a chair, support yourself with one crutch on the injured side. Hold the chair with the other hand, then lower yourself while putting all your weight on the good leg. Going up stairs is `good leg up, step up, then bring up crutches and bad leg.' Down stairs is `bad leg and crutches down, then bring good leg down.' If you develop numbness or swelling in an arm or hand, you are using the crutches incorrectly. Return if you are having any problems with the crutches. ICE & ELEVATION: Apply ice packs frequently against the painful area. Many different schedules are recommended, such as "20 minutes on, 20 minutes off" or "one hour ice, two hours rest." If you need to work, you may need to go longer between ice treatments. You should plan to have the area ice packed AT LEAST one-fourth of the time. The ice should be applied over the wrap, tape, or splint, or over a layer of cloth -- not directly against the skin. Some ice bags have a built-in cloth and can be put directly on the skin. Your injured part should be elevated as much as possible over the next 48 hours. Try to keep the injury above the level of the heart. Avoid use of the injured area. Elevation and rest will decrease the swelling. ORAL NARCOTIC MEDICATION: You have a prescription for pain control. This medication is a narcotic. It's best taken with food, as nausea can result if taken on an empty stomach. Don't operate machinery or drive within six hours of taking this medication. Do not combine this medicine with alcohol, or with any medication which can cause sedation (such as cold tablets or sleeping pills) unless you get permission from the physician. Narcotics tend to cause constipation. If possible, drink plenty of fluids and eat a diet high in fiber and fruits. Please be aware that prescription narcotics also have the potential for abuse. People become addicted to these medications because of the general sense of wellbeing that they induce. This feeling along with a significant reduction in tension, anxiety, and aggression provides a stimulating seductive quality to these drugs. Once your pain is under control, we encourage you to discard your unused narcotics. FOLLOW-UP CARE: If you have been referred to a physician for follow-up care, call the physicians office for an appointment as you were instructed or within the next two days. If you experience worsening or a significant change in your symptoms, notify the physician immediately or return to the Emergency Department at any time for re-evaluation. Forms: Elevated Blood Pressure Referrals: MERT PERSAUD MD [Primary Care Provider] - Follow up tomorrow [facility] [Provider Group] - Follow up as needed
--- NOTE | 2019-08-03 20:34 | RADIOLOGY REPORT (SQ) ---
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 COMPARISON: None. FINDINGS: The ankle mortise is preserved on these nonstress views. No acute fracture is seen. There is diffuse surrounding soft tissue swelling. No foreign body is seen. IMPRESSION: No acute fracture or malalignment.
--- NOTE | 2019-08-03 20:35 | RADIOLOGY REPORT (SQ) ---
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 COMPARISON: None. FINDINGS: The ankle mortise is preserved on these nonstress views. No acute fracture is seen. There is diffuse surrounding soft tissue swelling. No foreign body is seen. IMPRESSION: No acute fracture or malalignment.
[2019-08-03 21:12] VITALS: BP 152/60
== END 2019-08-03 21:13 | disposition home or self-care (01) ==
LOC: ER 19:20
PROC: 2W3RX1Z Immobilization of Left Lower Leg using Splint (ICD-10-PCS; principal; 2019-08-03)
DX: S90.512A Abrasion, left ankle, initial encounter (principal); S93.402A Sprain of unspecified ligament of left ankle, initial encounter; M25.572 Pain in left ankle and joints of left foot; R42 Dizziness and giddiness; X50.1XXA Overexertion from prolonged static or awkward postures, initial encounter; M54.9 Dorsalgia, unspecified; G89.29 Other chronic pain; Z79.899 Other long term (current) drug therapy; Z79.84 Long term (current) use of oral hypoglycemic drugs; Z87.891 Personal history of nicotine dependence; I10 Essential (primary) hypertension; E11.9 Type 2 diabetes mellitus without complications
CPT/HCPCS: 99283; 73610; 73630; 29515; L1902

== ENCOUNTER → 2020-04-19 | Outpatient (CLI) | payer MEDICARE ==
[2020-04-19 12:13] LABS: HEMATOCRIT 35.9 % (36.0-47.0); MEAN CORPUSCULAR HEMOGLOBIN 26.8 pg (27.0-33.4); MEAN CORPUSCULAR HGB CONC 33.4 g/dL (32.0-36.0); MEAN CORPUSCULAR VOLUME 80 fl (80-97); PLATELET COUNT 201 10^3/uL (150-450); RED BLOOD COUNT 4.47 10^6/uL (3.72-5.28); RED CELL DISTRIBUTION WIDTH 15.2 % (11.5-14.0); WHITE BLOOD COUNT 4.9 10^3/uL (4.0-10.5)
== END ==
LOC: OD 10:24
PROVIDERS: ATTEND Internal Medicine Gastroenterology
DX: K92.1 Melena (principal)
CPT/HCPCS: 36415; 85027